=== PATIENT | female | born 1930 | race Caucasian/White ===

== ENCOUNTER 2016-06-27 17:14 | Inpatient (IN) ==
[2016-06-27] MEDS ORDERED: PHENYLEPHRINE DRIP 40 MG/250 ML PREMIX IV STA (17:49)
[2016-06-27] MEDS ORDERED: PHENYLEPHRINE DRIP 40 MG/250 ML PREMIX IV ONE (17:52)
[2016-06-27] MEDS ORDERED: ONDANSETRON 4 MG/2 ML VIAL IV STA (18:09)
[2016-06-27] MEDS ORDERED: SODIUM CHLORIDE 0.9% 1,000 ML IV STA (18:09)
[2016-06-27] MEDS ORDERED: PANTOPRAZOLE 40 MG VIAL IV STA (18:09)
[2016-06-27] MEDS ORDERED: VANCOMYCIN INJ 1,000 MG in SODIUM CHLORIDE 0.9% 250 ML IV STA (18:12)
--- NOTE | 2016-06-27 18:14 | EKG Report ---
Stationary ECG Study [facility] ER Test Date: 06/27/2016 6:06:31 PM Pat Name: HUMAIRA BAUM Department: Room: Gender: F Lay Up Operator: : [id number] Requested by: Dominic Larsen Order Number: [id number] Reading MD: GRAY BALDERAS Intervals [place] Rate: 87 P: 55 ME: 172 QRS: 58 QRSD: 84 T: 77 QT: 367 QTc: 412 Interpretive Statements SINUS RHYTHM ST DEVIATION AND MODERATE T-WAVE ABNORMALITY Electronically Signed On 07-01-16 16:12:56 CDT by GRAY BALDERAS [email or web address]
--- NOTE | 2016-06-27 18:22 | Emergency Department Note ---
Catarino العراقي Kasabria, am scribing for, and in the presence of, Dominic Martinez MD 18:02. Michelle العراقي Charles R, MD, personally performed the services described in this documentation, ascribed by Kiersten Toribio in my presence, and it is both accurate and complete 822 . Arrival - Arrival Chief Complaint: Nausea/Vomiting/Diarrhea Stated Complaint: N/V/D ED Nursing Triage Note: Brought in by EMS c/o abd distention and N/V-onset earlier today. Nursing staff reports patient had a KUB earlier and was dx with ileus vs obstruction. Mode of Arrival: Stretcher Limitations: No Limitations Source: Patient Time Seen by Provider: 06/27/16 17:39 - History of Present Illness HPI Narrative: This is a 86 y/o white female presenting to the ED with c/o nausea, vomiting, and abdominal pain that onset earlier today while at the [facility]. Pt is not answering questions appropriately. Pt had a KUB earlier at the [facility] according to staff and was diagnosed with ileus vs obstruction. Pt has a PMHx of HTN, anxiety, depression, dementia, and osteoporosis. Consistency: constant Severity: moderate Date of Last Menstrual Period: liz Allergies/Adverse Reactions: Allergies Allergy/AdvReac Type Severity Reaction Status Date / Time Penicillins Allergy Unknown Unknown/Unable Verified 04/04/16 18:29 to obtain Home Medications: Home Medications Medication Instructions Recorded Confirmed Type Aspirin [Ecotrin] 325 mg PO DAILY 03/02/16 06/27/16 History Cyanocobalamin (Vitamin B-12) 1,000 mcg IM Q30D 03/02/16 06/27/16 History [Cyanocobalamin Injection] Sertraline [Zoloft] 50 mg PO BEDTIME 03/02/16 06/27/16 History Calcium (Carb)/Vit D 600-400 1 tablet PO BID 03/27/16 06/27/16 History [Caltrate 600 + D] Potassium Chloride Liquid 15 ml PO DAILY 03/27/16 06/27/16 History Losartan Potassium 50 mg PO DAILY 04/04/16 06/27/16 History Acetaminophen Tab [Tylenol Tab] 325 mg PO Q4H PRN tablet 04/17/16 06/27/16 Rx Gabapentin Cap/Tab [Neurontin 100 mg PO DAILY capsule 04/17/16 06/27/16 Rx Cap/Tab] OLANZapine TAB [ZyPREXA Tab] 5 mg PO BEDTIME tablet 04/17/16 06/27/16 Rx Zaleplon [Sonata] 5 mg PO BEDTIME PRN #30 capsule 04/17/16 06/27/16 Rx Furosemide Tab [Lasix Tab] 20 mg PO MOWEFR 04/20/16 06/27/16 History Levothyroxine Tab [Synthroid Tab] 125 mcg PO QAM 04/20/16 06/27/16 History Ferrous Sulfate 325 mg PO BID 06/27/16 06/27/16 History Pantoprazole Sodium 40 mg PO DAILY 06/27/16 06/27/16 History Promethazine Inj [Phenergan Inj] 25 mg IM Q8H PRN 06/27/16 06/27/16 History Review of System - Review of System 12 point system: reviewed and no additional remarkable complaints except as stated - Review of System Constitutional: Absent: chills, fever, weakness Eyes: Absent: vision change Head/Ears/Nose/Throat: Absent: nasal drainage Respiratory: Absent: cough, wheezing Cardiovascular: Absent: chest pain, dyspnea on exertion Gastrointestinal: Present: abdominal pain, nausea, vomiting. Absent: diarrhea Musculoskeletal: Absent: arm pain, back pain, leg pain, neck pain Skin: Absent: rash Neurological: Present: confusion. Absent: headache, weakness, vertigo Psychiatric: Absent: anxiety Endocrine: Absent: fatigue Hematological/Lymphatic: Absent: easy bleeding Allergic/Immunologic: Absent: facial swelling Medical,Surgical,& Family Hx - Medical History Cardio: History of: Hypertension Psychological: History of: Anxiety Disorders, Depression No history of: Behavior Problems, Previous Suicide Attempt, Psychiatric/ Substance Abuse Tx, Violent Behavior, Psychiatric Problems Neurology: History of: Dementia HEENT: History of: Dental Problems (partials) Endocrine: History of: Dyslipidemia, Thyroid Disorder Genitourinary: History of: Recurring Urinary Tract Infections Musculoskeletal: History of: Back/Neck Problems, Osteoporosis No history of: Amputation - Surgical History Cardiac Surgeries: Patient Denies: Cardiac Catheterization Thoracic Surgeries: Patient denies;: Organ Transplant, Lobectomy Neurologic Surgeries: Patient denies: Neurologic Surgery HEENT Surgeries: Patient denies: Eye Surgery, Tonsilectomy & Adenoidectomy Abdominal Surgeries: Surgical HX of: Appendectomy Patient denies: Abdominal Surgery Reproductive Surgeries: Surgical HX of;: Gynecologic Surgery, Hysterectomy Patient denies;: Genitourinary Surgery Orthopedic Surgeries: Surgical HX of;: Orthopedic Surgery (Left hip fracture/ REPAIR) - Family History Family History: Reports;: Family Cancer (MOTHER BREAST CA.), Family Heart Disease (FATHER HEART FAILURE.), Family Hypertension (SISTER), Family Stroke ( SISTER) Denies;: Family Anesthesia Reaction, Family Diabetes, Family Psychiatric Problems - Social History Smoking Status: Never smoker Frequency of Alcohol Use: None Type of Drug Use: None Exam Vital Signs: Vital Signs Temperature 97.4 F L 06/27/16 17:22 Pulse Rate 89 06/27/16 18:30 Respiratory Rate 20 06/27/16 18:30 Blood Pressure 82/44 06/27/16 18:30 O2 Sat by Pulse Oximetry 91 L 06/27/16 18:30 - General General appearance: in distress - Head Head exam: Present: atraumatic, normocephalic, normal inspection - Eye Eye exam: Present: normal appearance, PERRL, EOMI - ENT ENT exam: Present: normal exam, normal oropharynx, mucous membranes moist, TM's normal bilaterally, normal external ear exam - Neck Neck exam: Present: normal inspection, full ROM, trachea midline. Absent: tenderness - Chest Chest inspection: Present: normal inspection, symmetric chest wall rise. Absent : tenderness - Respiratory Respiratory exam: Present: rales. Absent: normal lung sounds bilaterally - Cardiovascular Cardiovascular exam: Present: regular rate, irregular rhythm, normal heart sounds. Absent: normal rhythm - Abdominal Exam Abdominal exam: Present: soft, tenderness, diminished bowel sounds. Absent: distention, normal bowel sounds - Rectal Exam Rectal exam: Present: heme (+) stool - Extremities Exam Extremities exam: Present: full ROM, normal capillary refill, pedal edema, other (non healing wound to anterior proctor; cellulitis ). Absent: normal inspection, tenderness, calf tenderness - Back Exam Back exam: Present: normal inspection, full ROM. Absent: tenderness - Neurological Exam Neurological exam: Present: alert, oriented X3, CN II-XII intact, normal gait, reflexes normal - Psychiatric Psychiatric exam: Present: normal affect, normal mood - Skin Skin exam: Present: warm, dry, intact, normal color, other (poor skin turgor ) Course Course Narrative: Unable to advance the NG tube. Patient has some dark tarry stool that is Hemoccult positive. Patient has a poor prognosis blood pressure is still low she is most likely has UTI from urosepsis ileus as well. Patient admitted to the ICU for medical management - Consultations Consultation #1: Hospitalist will admit patient Time: 19:52 Results - Labs CBC & BMP: 06/27/16 18:09 06/27/16 18:09 Lab Results: I have reviewed the patients labs Critical Care Time Critical Care Time: Yes Total Critical Care Time: 90 Disposition Clinical Impression: Gastroenteritis, Dehydration, Acute renal failure, Acute blood loss anemia, Hypotension, Ileus, Lower GI bleed, UTI (urinary tract infection), Lower extremity cellulitis Case discussed with: patient Disposition: Still a Patient Condition: Critical Time of Disposition: 19:14
[2016-06-27 18:23] LABS: Eosinophils % 0.1 % (0.00-10.9); Hematocrit 24.1 VOL% (35.7-47.0); Immature Granulocytes % 0.7 %; Immature Granulocytes Absolute 0.05 #; Lymphocytes # 0.1 10*3/uL (1.4-4.0); Lymphocytes % 1.3 % (21.3-54.2); Mean Corpuscular HGB Conc 33.2 GM/DL (32-36); Mean Corpuscular Hemoglobin 28 PG (27-34); Mean Corpuscular Volume 84.6 FL (87-102); Mean Platelet Volume 9.9 FL (9.6-12.0); Monocytes # 0.8 10*3/uL (0.11-0.8); Monocytes % 11.3 % (1.7-12.7); Neutrophils # 6.2 10*3/uL (1.4-7.4); Neutrophils % 86.6 % (38.7-73.9); Platelet Count 240 T/CUMM (130-400); Red Blood Count 2.85 MC/CUMM (3.8-5.5); Red Cell Distribution Width 14.5 % (9.3-17.3); White Blood Count 7.2 T/CUMM (4-12)
[2016-06-27 18:35] LABS: Alanine Aminotransferase 16 U/L (13-56); Albumin 2.1 G/DL (3.4-5.0); Alkaline Phosphatase 208 U/L (45-117); Amylase 68 U/L (25-115); Aspartate Amino Transferase 29 U/L (0-37); Blood Urea Nitrogen 56 MG/DL (7-18); Calcium 7.1 MG/DL (8.5-10.1); Glucose 106 MG/DL (74-106); Magnesium 2.5 MG/DL (1.8-2.4); Osmolality,Calculated 298.1 MOS/KG (273-304); Potassium 4.4 MMOL/L (3.5-5.1); Sodium 142 MMOL/L (136-145); Total Protein 4.6 G/DL (6.4-8.3); Troponin I Only < 0.015 NG/ML (0.00-0.045)
[2016-06-27 18:47] LABS: Lactic Acid 1.6 MMOL/L (0.4-2.0)
[2016-06-27] MEDS ORDERED: VANCOMYCIN 1,000 MG VIAL ONE (19:10)
--- NOTE | 2016-06-27 19:14 | XRay Report ---
Referring Physician: Dominic Martinez Exam: XR chest 1V portable Date: June 27, 2016 at 6:24 PM Reason: Generalized abdominal pain Comparison: Chest one view portable March 27, 2016 Findings: A feeding tube is in place with its distal tip within the distal esophagus near the gastroesophageal junction. The cardiac silhouette is upper normal in size, and the thoracic aorta is tortuous. There are mild scattered opacities within both lungs, mainly at the left lung base. This likely represents atelectasis and possibly pulmonary edema. No pleural fluid is identified. There is a skinfold artifact at the left chest, which makes evaluation for a pneumothorax difficult in this region. However, no definite pneumothorax is identified. No acute osseous process is seen. Impression: 1. A feeding tube is in place with its distal tip within the lower esophagus near the gastroesophageal junction. 2. There are mild scattered opacities within both lungs, mainly at the left lung base. This likely represents atelectasis, but there could also be mild pulmonary edema. PROCEDURE INTERPRETED AT [facility] DEPARTMENT OF RADIOLOGY Final Report Signed by: Dr. Martir Moore
--- NOTE | 2016-06-27 19:16 | XRay Report ---
Referring Physician: Dominic Martinez Exam: XR abdomen 2V Date: June 27, 2016 at 6:30 PM Reason: Generalized abdominal pain Comparison: Abdominal x-rays January 27, 2014 Findings: A feeding tube is present with its distal tip within the lower esophagus near the gastroesophageal junction. There are distended loops of bowel with air-fluid levels present. This is favored to represent distended colon, but this is difficult to confirm. There is also prominent stool within the left colon, which is concerning for constipation. No free air is identified. The renal shadows are largely obscured. There is multilevel degenerative change and scoliosis at the spine, and the patient is status post left total hip replacement. There may be a remote fracture of the right inferior pubic ramus. Impression: There are distended loops of bowel with air-fluid levels present. This is favored to represent colon and could represent ileus or distal obstruction. There is also prominent stool within the left colon, which is concerning for constipation. PROCEDURE INTERPRETED AT [facility] DEPARTMENT OF RADIOLOGY Final Report Signed by: Dr. Martir Moore
[2016-06-27] MEDS ORDERED: ONDANSETRON 4 MG/2 ML VIAL ONE (19:22)
[2016-06-27] MEDS ORDERED: PANTOPRAZOLE 40 MG VIAL IV ONE (19:22)
[2016-06-27 19:37] LABS: Apearance,Urine Slightly Hazy (Clear); Bacteria,Urine Occasional /HPF (Few); Bilirubin,Urine Negative (Negative); Blood, Urine Negative (Negative); Glucose,Urine (UA) Negative (Negative); Ketones,Urine Negative (Negative); Nitrite,Urine Negative (Negative); Protein,Urine Negative; RBC,Urine 4 /HPF (0-4); Squamous Epithelial Cell,Urine Occasional /HPF (0-10); Urine Color Yellow (Yellow); Urine Specific Gravity 1.009 (1.001-1.035); Urine Urobilinogen < 2.0 EU/DL (0.2-1.0); WBC,Urine 15 /HPF (0-6)
[2016-06-27 19:52] LABS: Band Neutrophils 6 % (0-10); Lymphocytes 7 % (20-55); Platelet Estimate Normal; Segmented Neutrophils 87 % (50-85); Total Cells Counted 100
--- NOTE | 2016-06-27 20:20 | Hospitalist History & Physical ---
Assessment and Plan (1) Ileus Status: Acute Assessment and plan: nausea and vomiting, unable to pass NG in ER. Reglan IV, unable to hydrate anymore due to pulmonary edema Current Visit: Yes (2) UTI (urinary tract infection) Status: Acute Assessment and plan: levaquin IV Current Visit: Yes (3) Pulmonary edema Status: Acute Assessment and plan: HL IVF, echo in am Current Visit: Yes (4) Acute renal failure Status: Acute Assessment and plan: unable to hydrate due to pul edema Current Visit: Yes (5) Acute blood loss anemia Status: Acute Assessment and plan: guaiac stool, unable to tolerate blood, protonix IV bid Current Visit: Yes (6) Hypotension Status: Acute Assessment and plan: cont pressors Current Visit: Yes (7) Lower extremity cellulitis Status: Acute Assessment and plan: cont abx and wound care Current Visit: Yes History of Present Illness Chief complaint: nausea and vomiting History of present illness: Ms. Romero is a 86 year old female presents to the ED with c/o nausea, vomiting, and abdominal pain that onset earlier today while at the [facility]. Patient is lethargic and unable to answer any questions. She has an ileus on xray. She remains hypotensive on pressors. Home Medications Medication Instructions Recorded Confirmed Type Aspirin [Ecotrin] 325 mg PO DAILY 03/02/16 06/27/16 History Cyanocobalamin (Vitamin B-12) 1,000 mcg IM Q30D 03/02/16 06/27/16 History [Cyanocobalamin Injection] Sertraline [Zoloft] 50 mg PO BEDTIME 03/02/16 06/27/16 History Calcium (Carb)/Vit D 600-400 1 tablet PO BID 03/27/16 06/27/16 History [Caltrate 600 + D] Potassium Chloride Liquid 15 ml PO DAILY 03/27/16 06/27/16 History Losartan Potassium 50 mg PO DAILY 04/04/16 06/27/16 History Acetaminophen Tab [Tylenol Tab] 325 mg PO Q4H PRN tablet 04/17/16 06/27/16 Rx Gabapentin Cap/Tab [Neurontin 100 mg PO DAILY capsule 04/17/16 06/27/16 Rx Cap/Tab] OLANZapine TAB [ZyPREXA Tab] 5 mg PO BEDTIME tablet 04/17/16 06/27/16 Rx Zaleplon [Sonata] 5 mg PO BEDTIME PRN #30 capsule 04/17/16 06/27/16 Rx Furosemide Tab [Lasix Tab] 20 mg PO MOWEFR 04/20/16 06/27/16 History Levothyroxine Tab [Synthroid Tab] 125 mcg PO QAM 04/20/16 06/27/16 History Ferrous Sulfate 325 mg PO BID 06/27/16 06/27/16 History Pantoprazole Sodium 40 mg PO DAILY 06/27/16 06/27/16 History Promethazine Inj [Phenergan Inj] 25 mg IM Q8H PRN 06/27/16 06/27/16 History Allergies Allergy/AdvReac Type Severity Reaction Status Date / Time Penicillins Allergy Unknown Unknown/Unable Verified 04/04/16 18:29 to obtain Medical,Surgical,& Family Hx - Medical History Cardio: History of: Hypertension Psychological: History of: Anxiety Disorders, Depression No history of: Behavior Problems, Previous Suicide Attempt, Psychiatric/ Substance Abuse Tx, Violent Behavior, Psychiatric Problems Neurology: History of: Dementia HEENT: History of: Dental Problems (partials) Endocrine: History of: Dyslipidemia, Thyroid Disorder Genitourinary: History of: Recurring Urinary Tract Infections Musculoskeletal: History of: Back/Neck Problems, Osteoporosis No history of: Amputation - Surgical History Cardiac Surgeries: Patient Denies: Cardiac Catheterization Thoracic Surgeries: Patient denies;: Organ Transplant, Lobectomy Neurologic Surgeries: Patient denies: Neurologic Surgery HEENT Surgeries: Patient denies: Eye Surgery, Tonsilectomy & Adenoidectomy Abdominal Surgeries: Surgical HX of: Appendectomy Patient denies: Abdominal Surgery Reproductive Surgeries: Surgical HX of;: Gynecologic Surgery, Hysterectomy Patient denies;: Genitourinary Surgery Orthopedic Surgeries: Surgical HX of;: Orthopedic Surgery (Left hip fracture/ REPAIR) - Family History Family History: Reports;: Family Cancer (MOTHER BREAST CA.), Family Heart Disease (FATHER HEART FAILURE.), Family Hypertension (SISTER), Family Stroke ( SISTER) Denies;: Family Anesthesia Reaction, Family Diabetes, Family Psychiatric Problems - Social History Smoking Status: Never smoker Frequency of Alcohol Use: None Type of Drug Use: None Marital Status: Single Lives With:: NH Functional capacity: bed bound ROS unobtainable: due to delirium Exam - Constitutional Vitals: Period Temp Pulse Resp BP Sys/Alonzo Pulse Ox Last 24 Hr 97 F-97.4 F 82-96 20-22 72-87/37-48 86-97 General appearance: normal weight, mild distress - Head Head exam: Present: normal inspection, normocephalic - Respiratory Respiratory exam: Present: decreased breath sounds, rales - Cardiovascular Cardiovascular exam: Present: regular rate and rhythm, tachycardia - GI/Abdominal GI/Abdominal exam: Present: distended, hypoactive bowel sounds, tenderness - Extremities Exam Extremities exam: Present: normal capillary refill, edema - Neurological Exam Neurological exam: Present: altered - Psychiatric Psychiatric exam: Present: depressed, flat affect - Skin Skin exam: Present: normal color, warm, other (wounds on extremities ) Results - Labs CBC & BMP: 06/27/16 18:09 06/27/16 18:09 Lab Results: I have reviewed the past 24 hour labs - EKG EKG shows: sinus rhythm - Diagnostic Findings Procedure: Chest x-ray: report reviewed by me (pulmonary edema ), X-ray: report reviewed by me (ileus )
[2016-06-27] MEDS ORDERED: ONDANSETRON 4 MG/2 ML VIAL IV PRN (22:44)
[2016-06-27] MEDS ORDERED: MORPHINE 2 MG/1 ML SYRINGE IV PRN (22:44)
[2016-06-27] MEDS ORDERED: LEVOFLOXACIN INJ 500 MG in PREMIX 1 EACH IV ONE (23:00)
[2016-06-27] MEDS: NOREPINEPHRINE 8 MG in SODIUM CHLORIDE 0.9% 242 ML IV SCH (23:12)
[2016-06-27] MEDS: PANTOPRAZOLE 40 MG VIAL IV SCH (23:12)
[2016-06-27] MEDS: METOCLOPRAMIDE 10 MG/2 ML VIAL IV SCH (23:42)
[2016-06-27] MEDS ORDERED: FUROSEMIDE 40 MG/4 ML VIAL IV ONE (23:57)
[2016-06-28 00:22] LABS: Magnesium 2.7 MG/DL (1.8-2.4); Thyroid Stimulating Hormone 1.54 uIU/ml (0.358-3.74)
[2016-06-28] MEDS ORDERED: PHENYLEPHRINE INJ 80 MG in SODIUM CHLORIDE 0.9% 242 ML IV SCH (00:30)
[2016-06-28] MEDS ORDERED: PHENYLEPHRINE DRIP 40 MG/250 ML PREMIX IV SCH (00:30)
[2016-06-28] MEDS: NOREPINEPHRINE 8 MG in SODIUM CHLORIDE 0.9% 242 ML IV SCH (01:08)
[2016-06-28 06:14] LABS: Basophils % 0.2 % (0.0-0.8); Hematocrit 32.3 VOL% (35.7-47.0); Hemoglobin 9.9 GM/DL (12.0-16.0); Immature Granulocytes % 0.7 %; Immature Granulocytes Absolute 0.13 #; Lymphocytes # 0.3 10*3/uL (1.4-4.0); Lymphocytes % 1.8 % (21.3-54.2); Mean Corpuscular HGB Conc 30.7 GM/DL (32-36); Mean Corpuscular Hemoglobin 28 PG (27-34); Mean Corpuscular Volume 89.7 FL (87-102); Mean Platelet Volume 9.9 FL (9.6-12.0); Monocytes # 2.2 10*3/uL (0.11-0.8); Monocytes % 11.9 % (1.7-12.7); Neutrophils # 15.5 10*3/uL (1.4-7.4); Neutrophils % 85.4 % (38.7-73.9); Platelet Count 338 T/CUMM (130-400); Red Cell Distribution Width 14.8 % (9.3-17.3); White Blood Count 18.2 T/CUMM (4-12)
[2016-06-28 06:28] LABS: Band Neutrophils 8 % (0-10); Hypochromasia 1+; Lymphocytes 5 % (20-55); Segmented Neutrophils 83 % (50-85); Total Cells Counted 100
[2016-06-28 06:29] LABS: Microcytosis Slight; Ovalocytes Slight; Platelet Estimate Normal
[2016-06-28] MEDS: METOCLOPRAMIDE 10 MG/2 ML VIAL IV SCH ×2 (06:32→13:29)
--- NOTE | 2016-06-28 07:23 | XRay Report ---
XR abdomen 1V Indication: Generalized abdominal pain Comparison: Abdominal x-ray dated June 27, 2016 Technique: Frontal views of the abdomen Findings: Nonweighted enteric tube tip projects over the mid stomach. Mild left basilar atelectasis and/or pleural fluid. Minimally improved moderate distention of colon. Diffuse osteopenia. Dextroconvex curvature of the spine. Left total hip prosthesis. IMPRESSION: As above. PROCEDURE INTERPRETED AT [facility] DEPARTMENT OF RADIOLOGY Final Report Signed by: Dr Julius Barba
[2016-06-28 08:44] LABS: Alanine Aminotransferase 19 U/L (13-56); Albumin 2.3 G/DL (3.4-5.0); Alkaline Phosphatase 260 U/L (45-117); Aspartate Amino Transferase 40 U/L (0-37); Bilirubin,Total < 0.39 MG/DL (0.2-1.0); Blood Urea Nitrogen 63 MG/DL (7-18); Calcium 7.7 MG/DL (8.5-10.1); Glucose 74 MG/DL (74-106); Osmolality,Calculated 293.5 MOS/KG (273-304); Potassium 5.1 MMOL/L (3.5-5.1); Sodium 139 MMOL/L (136-145); Total Protein 5.4 G/DL (6.4-8.3)
[2016-06-28] MEDS ORDERED: MORPHINE 2 MG/1 ML SYRINGE IV PRN (08:58)
[2016-06-28] MEDS ORDERED: ENOXAPARIN 30 MG/0.3 ML SYRINGE SUBCUT SCH (09:00)
[2016-06-28] MEDS: PANTOPRAZOLE 40 MG VIAL IV SCH (13:29)
--- NOTE | 2016-06-28 14:09 | Hospitalist Progress Note ---
Assessment and Plan (1) Hospice care Status: Acute Assessment and plan: end of life comfort care. fentanyl patch and morphine prn Current Visit: Yes (2) Ileus Status: Acute Assessment and plan: zofran, cont ng for now Current Visit: Yes (3) UTI (urinary tract infection) Status: Acute Assessment and plan: stop all abx Current Visit: Yes (4) Acute renal failure Status: Acute Assessment and plan: worsening renal failure, unable to hydrate due to pulmonary edema, now hospice Current Visit: Yes (5) Hypotension Status: Acute Assessment and plan: pressors discontinued due to hospice end of life care. Current Visit: Yes Hospitalist: Subjective Interval history: Discussed prognosis with his sister. Sister is her power of construction electrician. Patient is from [facility]. Patient was made comfort care. Patient was chronically unhappy since having to go to the halfway and is deteriorated rapidly since then. Her sister reports that she would not want all of this done to her. She was a DNR out at the halfway but is now comfort care. We will consult hospice for end-of-life care. Patient is hypotensive since taking her off pressors. She is septic and has an ileus versus obstruction. NG tube was placed and is suctioning out stool. I will keep that in for now as I would consider some of that comfort care because I do not want her vomiting and aspirating into her lungs. We will place a fentanyl patch and give morphine as needed Exam - Constitutional Vitals: Period Temp Pulse Resp BP Sys/Alonzo Pulse Ox Last 24 Hr 98.7 F-98.7 F 71-114 12-33 57-146/39-87 78-100 Exam: Heart Rate-[tachy] Lungs-[Clear but diminished ] GI-[no bowel sounds, less distended Ext-[no edema] Neuro unresponsive psych unresponsive General [mild acute distress] Results - Labs CBC & BMP: 06/28/16 05:49 06/28/16 08:06 Lab Results: I have reviewed the past 24 hour labs Labs: gram positive cocci - Diagnostic Findings Procedure: Abdominal x-ray: report reviewed by me (moderately improved distention of colon )
[2016-06-28] MEDS ORDERED: fentaNYL 12 MCG/HR PATCH TRANSDERM SCH (14:30)
[2016-06-28] MEDS: MORPHINE 2 MG/1 ML SYRINGE IV PRN (16:30)
[2016-06-28] MEDS ORDERED: ACETAMINOPHEN 325 MG/10.15 ML UDCUP PO PRN (21:58)
[2016-06-29] MEDS: MORPHINE 2 MG/1 ML SYRINGE IV PRN (05:30)
--- NOTE | 2016-06-29 07:36 | Discharge Summary ---
Hospital Course - Hospital Course Hospital Course: 86-year-old female presents to emergency room with nausea vomiting and abdominal pain. X-ray shows patient has an ileus. An NG tube was placed. Stool was being suctioned out of her stomach. She was hypotensive but could not be rehydrated as she quickly went into pulmonary edema. Patient was placed on pressors and placed in the ICU. She had multiple wounds in her lower extremities and a UTI. She was had anemia but no blood was transfused due to concern for volume overload. Patient was placed on IV Levaquin. Her sister was contacted the following day and requested hospice end-of-life care. All antibiotics and medications were discontinued except for comfort meds. Her blood pressure remains in the 60s systolic overnight and this morning. Patient is extremely comfortable and is from [facility] and will return there on hospice with [facility]. - Time spent with patient Time with patient DS: Less than 30 minutes (25 min) Diagnosis - Discharge Diagnosis (1) Hospice care Status: Acute (2) Ileus Status: Acute (3) UTI (urinary tract infection) Status: Acute (4) Acute renal failure Status: Acute (5) Hypotension Status: Acute Discharge Plan - Discharge Data Disposition: Hospice - Medical Facility Discharge Diet: regular diet Activity: wear oxygen at all times, other (bedrest) Hygiene: other (bed bath) Weight Bearing at Discharge: other (bedrest only ) - Discharge Medications New fentaNYL 12 MCG/HR PATCH [Duragesic 12 Patch] 1 patch TRANSDERM Q3DAY #5 patch Morphine Sulfate [Morphine Conc Liquid] 0.5 mg PO Q2H PRN #30 ml PRN Reason: pain or sob Discontinued Cyanocobalamin (Vitamin B-12) [Cyanocobalamin Injection] 1,000 mcg IM Q30D Potassium Chloride Liquid 15 ml PO DAILY Levothyroxine Tab [Synthroid Tab] 125 mcg PO QAM Promethazine Inj [Phenergan Inj] 25 mg IM Q8H PRN PRN Reason: Nausea/Vomiting Ferrous Sulfate 325 mg PO BID Pantoprazole Sodium 40 mg PO DAILY Sertraline [Zoloft] 50 mg PO BEDTIME Aspirin [Ecotrin] 325 mg PO DAILY Calcium (Carb)/Vit D 600-400 [Caltrate 600 + D] 1 tablet PO BID Furosemide Tab [Lasix Tab] 20 mg PO MOWEFR Losartan Potassium 50 mg PO DAILY Gabapentin Cap/Tab [Neurontin Cap/Tab] 100 mg PO DAILY capsule OLANZapine TAB [ZyPREXA Tab] 5 mg PO BEDTIME tablet Zaleplon [Sonata] 5 mg PO BEDTIME PRN #30 capsule PRN Reason: Sleep Acetaminophen Tab [Tylenol Tab] 325 mg PO Q4H PRN tablet PRN Reason: fever, headache/body aches - Follow Up or Referral - Forms/Instructions Exam - Constitutional Vitals: Period Temp Pulse Resp BP Sys/Alonzo Pulse Ox Last 24 Hr 99.3 F-100.1 F 83-93 14-21 65-75/26-35 91-97 - Respiratory Respiratory exam: Present: clear to auscultation bilaterally, decreased breath sounds. Absent: rhonchi, wheezes - Cardiovascular Cardiovascular exam: Present: regular rate and rhythm - GI/Abdominal GI/Abdominal exam: Present: hypoactive bowel sounds - Neurological Exam Neurological exam: Present: altered Discharge Results Labs on day of discharge: Labs from last 24 hours 06/28/16 08:06 Sodium 139 Potassium 5.1 Chloride 106 Carbon Dioxide 23 Anion Gap 15.1 H BUN 63 H Creatinine 3.30 H GFR Calculation 9 BUN/Creatinine Ratio 19.00 Glucose 74 Calculated Osmolality 293.5 Calcium 7.7 L Total Bilirubin < 0.39 AST 40 H ALT 19 Alkaline Phosphatase 260 H Total Protein 5.4 L Albumin 2.3 L Globulin 3.1 Albumin/Globulin Ratio 0.7 L Preliminary micro results at discharge 06/27/16 Unknown Urine Culture - Preliminary Urine,Voided Gram Positive Cocci DS: Provider Date of admission: 06/27/16 20:09 Primary care physician: Luis Enrique Franklin, Attending physician on admission: Rivka Gutierrez MD Consults: 06/27/16 23:24 Consult to Dietitian [CONS] Routine Reason for Dietitian: Dietary Consult 06/28/16 14:05 Consult to Case Mgmt/Social Srvs [CONS] Routine Reason for Case Mgmt/Social Srvs: Hospice Referral Consult Comment: quality hospice at [facility] Discharging clinician: Rivka Gutierrez MD
[2016-06-29 11:21] VITALS: BP 68/31
[2016-06-29] MEDS ORDERED: LEVOFLOXACIN INJ 250 MG in PREMIX 1 EACH IV SCH (21:00)
== END 2016-06-29 14:00 | disposition hospice, inpatient (51) | DRG 872 ==
LOC: EDBD → EDUNIT# → N.ED 17:14 → N.EDINP 20:09 → N.CC 22:30 → N.5E 06-28 22:38
PROVIDERS: ADMIT Internal Medicine; ATTEND Internal Medicine